=== PATIENT | female | born 1955 | race African-American/Black ===

== ENCOUNTER 2017-01-05 21:42 | Emergency (ER) | payer OTHER ==
[~2017-01-05] VITALS: Ht 165.1 cm; Wt 89.8 kg
[2017-01-05 22:00] VITALS: BP 150/80
[2017-01-05] MEDS ORDERED: Metoclopramide 10mg/2ml Inj IVP ONE (22:15)
[2017-01-05 22:37] LABS: MEAN CORPUSCULAR HEMOGLOBIN 28.6 PG (27.0-31.0); MEAN CORPUSCULAR HGB CONC 31.5 G/DL (32.0-36.0); MEAN CORPUSCULAR VOLUME 91 FL (80-99); MEAN PLATELET VOLUME 8.1 FL (6.5-10.1); PLATELET COUNT 168 K/UL (150-450); RED BLOOD COUNT 4.94 M/UL (4.20-5.40); WHITE BLOOD COUNT 12.3 K/UL (4.8-10.8)
[2017-01-05 22:39] LABS: LYMPHOCYTES % (AUTO) 7.9 % (20.0-45.0); NEUTROPHILS % (AUTO) 88.7 % (45.0-75.0)
[2017-01-05 22:40] LABS: BASOPHILS % (AUTO) 0.4 % (0.0-2.0); EOSINOPHILS % (AUTO) 0.1 % (0.0-3.0); MONOCYTES % (AUTO) 2.9 % (1.0-10.0)
[2017-01-05 22:48] LABS: ALANINE AMINOTRANSFERASE 28 U/L (12-78); ALBUMIN/GLOBULIN RATIO 0.9 (1.0-2.7); ANION GAP 6 (5-15); ASPARTATE AMINO TRANSFERASE 16 U/L (15-37); CALCIUM 9.5 MG/DL (8.5-10.1); CARBON DIOXIDE 30 MMOL/L (21-32); CHLORIDE 97 MMOL/L (98-107); CREATININE 0.9 MG/DL (0.55-1.30); GLOMERULAR FILTRATION RATE > 60 mL/min (>60); LIPASE 88 U/L (73-393); POTASSIUM 3.6 MMOL/L (3.5-5.1); SODIUM 133 MMOL/L (136-145); TOTAL PROTEIN 8.6 G/DL (6.4-8.2)
--- NOTE | 2017-01-05 22:51 | Emergency Room Report ---
History of Present Illness General Chief Complaint: Gastrointestinal Bleed Source: Patient Present Illness HPI [id number] walk-in, sent from urgent care for blood in diarrhea Was feeling unwell today with stomach pain, nausea/vomiting x2, diarrhea Had small amount of blood in stool Denies abd surgery, urinary complaints, fever/chills No foreign travel Hb 14.1 from Urgent care however patient denies blood was drawn She DID have fingerstick but assumed it was glucose check ?if [facility] did Allergies: Coded Allergies: No Known Allergies (Unverified , 01/05/17) Patient History Past Medical History: DM Past Surgical History: none Pertinent Family History: none Social History: Denies: smoking, alcohol use, drug use Last Menstrual Period: N/A Now: No Immunizations: UTD Reviewed Nursing Documentation: PMH: Agreed, PSxH: Agreed Nursing Documentation-PMH Hx Hypertension: Yes Hx Diabetes: Yes Review of Systems All Other Systems: negative except mentioned in HPI Physical Exam Vital Signs Date Time Temp Pulse Resp B/P (MAP) Pulse Ox O2 Delivery O2 Flow Rate FiO2 01/05/17 21:50 98.2 80 18 178/76 95 Room Air Sp02 EP Interpretation: reviewed, normal General Appearance: normal inspection, well appearing, no apparent distress, alert, GCS 15, non-toxic Head: normocephalic, atraumatic Eyes: bilateral eye PERRL, bilateral eye EOMI ENT: normal ENT inspection, hearing grossly normal, normal voice Neck: normal inspection, full range of motion, supple, no bony tend Respiratory: normal inspection, lungs clear, normal breath sounds, no respiratory distress, no retraction, no wheezing Cardiovascular #1: regular rate, rhythm, no edema Gastrointestinal: normal inspection, normal bowel sounds, non tender, soft, no guarding, no hernia Genitourinary: no CVA tenderness Musculoskeletal: normal inspection, back normal, normal range of motion, Sommer' s Sign negative Neurologic: normal inspection, alert, oriented x3, responsive, lining stamper III-XII nml as tested, motor strength/tone normal, speech normal Medical Decision Making Diagnostic Impression: Primary Impression: Viral gastroenteritis Additional Impression: Nausea vomiting and diarrhea ER Course VSS. Afebrile H&H stable. Mild leuks. No other metabolic abnormalities Abdomen focally non-tender on serial exam Improved with pepcid, zofran No additional vomiting/diarrhea No robert rectal bleed on exam - mostly diarrhea/mucous with scant blood specks Likely viral gastroenteritis Rx Pepcid, zofran Patient hasnt had colonscopy yet - advised PMD followup for GI referral Low suspicion for acute bacterial/surgical process requiring additional lab work , imaging, admission and/or surgical evaluation at this time given well appearing, non-focal abd on serial exam, stable vital signs, and tolerating PO. In shared decision making process with patient, understands to return to ER for worsening symptoms and to followup with PMD in reasonable amount of time, 2-3 days. Last Vital Signs Date Time Temp Pulse Resp B/P (MAP) Pulse Ox O2 Delivery O2 Flow Rate FiO2 01/05/17 22:00 98.2 78 16 150/80 98 Room Air Status: improved Disposition: HOME, SELF-CARE Scripts Ondansetron Odt* (ZOFRAN ODT*) 4 Mg Tab.rapdis 4 MG ORAL EVERY 12 HOURS for 7 Days, #14 TAB 0 Refills Prov: TOI BRADLEY M.D. 01/05/17 Famotidine (PEPCID) 40 Mg Tablet 40 MG PO DAILY for 7 Days, #7 TAB 0 Refills Prov: TOI BRADLEY M.D. 01/05/17 TOI BRADLEY M.D. Jan 05, 2017 22:51
[2017-01-05 23:09] LABS: BILIRUBIN,DIRECT 0.3 MG/DL (0.0-0.3)
[2017-01-05 23:10] VITALS: BP 145/82
[2017-01-05] MEDS ORDERED: PEPCID40 MG PO (23:22)
[2017-01-05] MEDS ORDERED: ONDANSETRON ODT4 MG ORAL (23:22)
[2017-01-05 23:30] VITALS: BP 142/78
[2017-01-05 23:43] LABS: APPEARANCE,URINE SLIGHTLY CLOUDY; KETONES,URINE NEGATIVE (NEGATIVE); LEUKOCYTE ESTERASE ,URINE 2+ (NEGATIVE); NITRITE,URINE POSITIVE (NEGATIVE); PH,URINE 5 (4.5-8.0); PROTEIN,URINE NEGATIVE (NEGATIVE); UROBILINOGEN,URINE NORMAL MG/DL (0.0-1.0)
[2017-01-05 23:54] LABS: BACTERIA,URINE MODERATE /HPF; SQUAMOUS EPITHELIAL CELL,UR FEW /LPF (NONE/OCC)
== END 2017-01-05 23:30 | disposition home or self-care (01) ==
LOC: EMR 22:16
DX: A08.4 Viral intestinal infection, unspecified (principal); E11.9 Type 2 diabetes mellitus without complications; I10 Essential (primary) hypertension
CPT/HCPCS: 36415; 80053; 81003; 82248; 82962; 83690; 84484; 85025; 87086; 87181; 96374; 96375; 99284; J2765; S0028

== ENCOUNTER 2017-01-15 12:56 | Emergency (ER) | payer OTHER ==
[~2017-01-15] VITALS: Ht 167.6 cm; Wt 89.4 kg
[~2017-01-15 12:56] MED LIST: ONDANSETRON ODT4 MG ORAL; PEPCID40 MG PO
[2017-01-15 13:20] VITALS: BP 158/78
[2017-01-15 15:03] LABS: APPEARANCE,URINE SLIGHTLY CLOUDY; KETONES,URINE NEGATIVE (NEGATIVE); LEUKOCYTE ESTERASE ,URINE 2+ (NEGATIVE); NITRITE,URINE POSITIVE (NEGATIVE); PH,URINE 5 (4.5-8.0); PROTEIN,URINE NEGATIVE (NEGATIVE); UROBILINOGEN,URINE NORMAL MG/DL (0.0-1.0)
[2017-01-15 15:10] LABS: BACTERIA,URINE MODERATE /HPF; RBC,URINE 0-2 /HPF (0 - 2); SQUAMOUS EPITHELIAL CELL,UR MANY /LPF (NONE/OCC)
[2017-01-15] MEDS ORDERED: NITROFURANTOIN100 M2 ORAL (15:32)
[2017-01-15 15:35] VITALS: BP 158/78
--- NOTE | 2017-01-15 17:34 | Emergency Room Report ---
History of Present Illness General Chief Complaint: General Complaint Source: Patient, Medical Record Present Illness HPI The patient is a 61 old female presenting for followup. She was seen in this emergency department approximately one week prior and diagnosed with gastroenteritis. He was also found that she had a urinary tract infection and was called back to return for further evaluation and treatment. She states that she is no longer experiencing nausea diarrhea, or abdominal pain. She does admit to burning sensation with urination as well as increased urinary frequency. She denies any vaginal discharge. She denies any other symptoms including fever or chills Allergies: Coded Allergies: No Known Allergies (Unverified , 01/05/17) Patient History Past Medical History: see triage record Pertinent Family History: none Reviewed Nursing Documentation: PMH: Agreed, PSxH: Agreed Nursing Documentation-PMH Hx Hypertension: Yes Hx Diabetes: Yes Review of Systems All Other Systems: negative except mentioned in HPI Physical Exam Vital Signs Date Time Temp Pulse Resp B/P (MAP) Pulse Ox O2 Delivery O2 Flow Rate FiO2 01/15/17 13:14 98.2 68 16 158/78 99 Room Air Sp02 EP Interpretation: reviewed, normal General Appearance: no apparent distress, alert, GCS 15, non-toxic Head: normocephalic, atraumatic Eyes: bilateral eye normal inspection, bilateral eye PERRL ENT: hearing grossly normal, normal pharynx, no angioedema, normal voice Neck: full range of motion, supple/symm/no masses Respiratory: chest non-tender, lungs clear, normal breath sounds, speaking full sentences Gastrointestinal: normal bowel sounds, non tender, soft, non-distended, no guarding, no rebound Rectal: deferred Genitourinary: normal inspection, no CVA tenderness Musculoskeletal: back normal, gait/station normal, normal range of motion, non- tender Neurologic: alert, oriented x3, responsive, motor strength/tone normal, sensory intact, speech normal Psychiatric: judgement/insight normal, memory normal, mood/affect normal, no suicidal/homicidal ideation Skin: normal color, no rash, warm/dry, well hydrated Medical Decision Making PA Attestation Dr. Jean-Baptiste is my supervising physician. Patient management was discussed with my supervising physician Diagnostic Impression: Primary Impression: Urinary tract infection Qualified Codes: N30.00 - Acute cystitis without hematuria ER Course The patient is a 61-year-old female presenting for urinary tract infection followup Differential diagnosis considered but not limited to: UTI, vaginitis, pyelonephritis, vaginal yeast infection, among others PE: Vitals WNL. NAD. Abdomen: Normal appearance. Non distended. No ecchymosis. Normal BS. Non TTP. No McBurney point tenderness. No guarding. No CVA tenderness Urinalysis is consistent with UTI Based on past sensitivity report, patient will be treated with Macrobid he needs to followup with primary doctor. ER precautions are given Laboratory Tests Test 01/15/17 14:52 Urine Color Pale yellow Urine Appearance Slightly cloudy Urine pH 5 (4.5-8.0) Urine Specific Century 1.010 (1.005-1.035) Urine Protein Negative (NEGATIVE) Urine Glucose (UA) Negative (NEGATIVE) Urine Ketones Negative (NEGATIVE) Urine Occult Blood 1+ (NEGATIVE) H Urine Nitrite Positive (NEGATIVE) H Urine Bilirubin Negative (NEGATIVE) Urine Urobilinogen Normal MG/DL (0.0-1.0) Urine Leukocyte Esterase 2+ (NEGATIVE) H Urine RBC 0-2 /HPF (0 - 2) Urine WBC 5-10 /HPF (0 - 2) H Urine Squamous Epithelial Cells Many /LPF (NONE/OCC) H Urine Bacteria Moderate /HPF (NONE) H Lab Results Impression Consistent with UTI Last Vital Signs Date Time Temp Pulse Resp B/P (MAP) Pulse Ox O2 Delivery O2 Flow Rate FiO2 01/15/17 15:35 98.2 76 16 158/78 99 Room Air Status: improved Disposition: HOME, SELF-CARE Condition: Improved Scripts Nitrofurantoin Monohyd/M-Cryst* (MACROBID 100 MG*) 100 Mg Capsule 100 MG ORAL EVERY 12 HOURS, #14 CAP Prov: HAFSA CASTELAN 01/15/17 Patient Instructions: Urinary Tract Infection Additional Instructions: I discussed my findings with the patient. All questions and concerns have been answered. Treatment and medication compliance have been addressed. I advised the patient that they need to follow up with PMD in 3-5 days. Return to ED if symptoms worsen, new symptoms arise, or if needed for any reason. Patient verbalized understanding of discharge instructions. HAFSA CASTELAN Jan 15, 2017 17:34
== END 2017-01-15 16:37 | disposition home or self-care (01) ==
LOC: EMR 15:15
DX: N39.0 Urinary tract infection, site not specified (principal); I10 Essential (primary) hypertension; E11.9 Type 2 diabetes mellitus without complications
CPT/HCPCS: 81003; 87086; 87181; 99283